=== PATIENT | male | born 1990 | race Two or more races ===

== ENCOUNTER 2019-03-26 21:17 | Emergency (ER) | payer OTHER ==
[~2019-03-26] VITALS: Ht 165.1 cm; Wt 63.5 kg
[~2019-03-26 21:17] MED LIST: NASONEX17 GM NS; ZYRTEC10 MG PO
== END 2019-03-26 21:48 | disposition home or self-care (01) ==
LOC: ER 21:17
DX: R06.02 Shortness of breath (principal); F06.4 Anxiety disorder due to known physiological condition